=== PATIENT | male | born 1940 | race Caucasian/White ===

== ENCOUNTER → 2016-06-30 | Outpatient (CLI) | payer OTHER ==
[~2016-06-30] MED LIST: ANALGESIC325 MG PO; DUONEB 2.5-0.5 M3 ML INH; FISHOIL; FLOMAX0.4 MG PO; HYDROCODON-ACE1 EAC7 PO; LIDODERM 5%1 PATCH TRANSDERM; LORTAB 7.5-3251 EACH PO; MECLIZINE 25 MG25 M1 PO; NAFCILLIN2 GM/100 M IV; ONE DAILY1 EAC1 PO; SKELAXIN 800 M800 MG PO; VENTOLIN HFA 1818 GM INH
== END ==
LOC: MRI 07:01
DX: M46.20 Osteomyelitis of vertebra, site unspecified (principal); M47.817 Spondylosis without myelopathy or radiculopathy, lumbosacral region

== ENCOUNTER 2017-06-24 07:32 | Emergency (ER) | payer OTHER ==
[~2017-06-24] VITALS: Ht 182.9 cm; Wt 97.5 kg
[2017-06-24 07:33] VITALS: BP 187/101
[2017-06-24] MEDS ORDERED: ASPIRIN325 PO (07:52)
[2017-06-24] MEDS ORDERED: PROSTATE 2.4 C1 EACH PO (07:52)
[2017-06-24] MEDS ORDERED: TYLENOL325 MG PO (07:53)
[2017-06-24] MEDS ORDERED: OXYCODONE HCL 55 MG PO (08:08)
== END 2017-06-24 08:20 | disposition home or self-care (01) ==
LOC: ER 07:32
DX: M25.531 Pain in right wrist (principal); M19.90 Unspecified osteoarthritis, unspecified site; N40.0 Benign prostatic hyperplasia without lower urinary tract symptoms; Z96.652 Presence of left artificial knee joint; Z86.718 Personal history of other venous thrombosis and embolism; Z88.8 Allergy status to other drugs, medicaments and biological substances; Z87.891 Personal history of nicotine dependence

== ENCOUNTER 2018-10-07 16:17 | Emergency (ER) | payer OTHER ==
[~2018-10-07] VITALS: Ht 175.3 cm; Wt 77.1 kg
[~2018-10-07 16:17] MED LIST changes: +ASPIRIN325 PO; +OXYCODONE HCL 55 MG PO; +PROSTATE 2.4 C1 EACH PO; +TYLENOL325 MG PO
[2018-10-07 18:38] VITALS: BP 126/74
== END 2018-10-07 18:25 | disposition home or self-care (01) ==
LOC: ER 16:17
DX: S50.02XA Contusion of left elbow, initial encounter (principal); M19.90 Unspecified osteoarthritis, unspecified site; Z87.891 Personal history of nicotine dependence; Z86.718 Personal history of other venous thrombosis and embolism; W01.0XXA Fall on same level from slipping, tripping and stumbling without subsequent striking against object, initial encounter; Y92.89 Other specified places as the place of occurrence of the external cause; Y99.0 Civilian activity done for income or pay; Y99.8 Other external cause status

== ENCOUNTER → 2018-10-27 | Outpatient (CLI) | payer OTHER ==
--- NOTE | ~2018-10-27 | PFR/MVV ---
[facility] [place] [address] PULMONARY FUNCTION MVV/REPORT Name: MARCELABENJAMIN M Room #: REG [facility]#: [id number] ������������������ Admission: 10/27/18 ������������������ Attend Phys: Jeff Hopkins MD Discharge: ������������������ Date of : 42 Report #: [id number] THIS REPORT FOR: //name// >> SPIROMETRY: (BTPS) Height: in cm Weight: lbs kg Exam Date: PRE-RX POST-RX PRED BEST %PRED BEST %PRED %CHG FVC LITERS . . . . . . FEV1 LITERS . . . . . . FEV1/FVC % . . . . . . XWN63-98% L/Sec . . . . . . PEF L/SEC . . . . . . FEF50/FIF50 UNITLESS . . . . . . MVV L/Min . . . f 1/Min . . . >> LUNG VOLUMES: (BTPS) PRE-RX POST-RX PRED AVG %PRED AVG %PRED %CHG VC Liters . . . . . . TLC Liters . . . . . . RV Liters . . . . . . RV/TLC % . . . . . . FRC PL Liters . . . . . . FRC N2 Liters . . . . . . ERV Liters . . . . . . IC Liters . . . . . . >> DIFFUSION: DLCO ml/Min/mmHg . . . . . . DL Abdulaziz ml/Min/mmHg . . . . . . DLCO/VA ml/Min/mmHg . . . . . . VA Liters . . . . . . COMMENTS: COMMENTS: >> RESISTANCE: [facility] [address] [place] [address] PULMONARY FUNCTION MVV/REPORT Name: BENJAMIN MEDRANO [facility] [id number] ������������������ Admission: 10/27/18 ������������������ Attend Phys: Jeff Hopkins MD Discharge: ������������������ Date of : 42 Report #: [id number] PRE-RX PRED AVG %PRED Raw Total cmH20/L/Sec . . . Raw Insp cmH20/L/Sec . . . Raw Exp cmH20/L/Sec . . . Raw cmH20/L/Sec . . . Gaw L/Sec/cmH20 . . . sRaw cmH20 Sec . . . sGaw l/cmH20 Sec . . . Vtq Liters . . . # = OUTSIDE 95% CONFIDENCE INTERVAL CALIBRATION: PRED: 3.00 ACTUAL: EXP 3.[address] [facility] N-[id number] >> INTERPRETATION/IMPRESSION: CC: Jeff Hopkins DATE OF SERVICE: 10/27/2018 DIAGNOSIS: Dyspnea. SPIROMETRY: FEV1 is 1.19 liters (34%), FVC is 2.87 liters (53%). FEV1/FVC is 41%. Postbronchodilator therapy is significant with FEV1 increasing to 1.53 liters (29% change), FVC increased to 3.49 liters (22% change). Diffusing capacity is 15.8 or 63%. IMPRESSION: Spirometry is suggestive of a very severe obstructive airflow defect with a significant response to bronchodilator therapy. Lung volumes were not completed, so significance air trapping and hyperinflation is not noted. Diffusing capacity is slightly decreased. ��������������������������������������������� ���������������������������������������� By: ��������������������������������������������� Bunny Stevens MD /nt
--- NOTE | ~2018-10-27 | PFR/MVV ---
[facility] [place] [address] [place] [address] PULMONARY FUNCTION MVV/REPORT Name: BENJAMIN MEDRANO Room #: REG [facility] Anam#: [id number] ������������������ Admission: 10/27/18 ������������������ Attend Phys: Jeff Hopkins MD Discharge: ������������������ Date of : 42 Report #: [id number] THIS REPORT FOR: //name// COPIES FOR: AGE:������ 78 SEX/RACE:� M/C >> SPIROMETRY: (BTPS) Height: 78.0 in cm Weight: 220 lbs kg Exam Date: 10/27/18 PRE-RX POST-RX PRED BEST %PRED BEST %PRED %CHG FVC LITERS . 5.38 . 2.87 . 53 . 3.49 . 65 . 22 FEV1 LITERS . 3.45 . 1.19 . 34 . 1.53 . 44 . 29 FEV1/FVC % . 64 . 41 . 64 . 44 . 68 . 6 QCR43-67% L/Sec . 2.71 . 0.35 . 13 . 0.40 . 15 . 14 PEF L/SEC . 9.93 . 3.76 . 38 . 3.83 . 39 . 2 FEF50/FIF50 UNITLESS . . 3.23 . . . . MVV L/Min . 146 . 39 . 27 f 1/Min . . 70 . >> LUNG VOLUMES: (BTPS) PRE-RX POST-RX PRED AVG %PRED AVG %PRED %CHG VC Liters . . . . . . TLC Liters . . . . . . RV Liters . . . . . . RV/TLC % . . . . . . FRC PL Liters . . . . . . FRC N2 Liters . . . . . . ERV Liters . . . . . . IC Liters . . . . . . >> DIFFUSION: DLCO ml/Min/mmHg . 24.9 . 15.8 . 63 . . . DL Abdulaziz ml/Min/mmHg . 24.9 . 15.8 . 63 . . . DLCO/VA ml/Min/mmHg . 3.41 . 3.96 . . . . VA Liters . . 3.99 . . . . [facility] [address] [place] [address] PULMONARY FUNCTION MVV/REPORT Name: BENJAMIN MEDRANO Cristi Room #: [facility]#: [id number] ������������������ Admission: 10/27/18 ������������������ Attend Phys: Jeff Hopkins MD Discharge: ������������������ Date of : 42 Report #: [id number] COMMENTS: COMMENTS: >> RESISTANCE: PRE-RX PRED AVG %PRED Raw Total cmH20/L/Sec . . 3.05 . Raw Insp cmH20/L/Sec . . 3.54 . Raw Exp cmH20/L/Sec . . 6.78 . Raw cmH20/L/Sec . 0.89 . 9.21 . 1037 Gaw L/Sec/cmH20 . 1.139 . 0109 . 10 sRaw cmH20 Sec . 4.22 . . 3816 sGaw l/cmH20 Sec . 0.237 . . 3 Vtq Liters . . 17.48 . # = OUTSIDE 95% CONFIDENCE INTERVAL CALIBRATION: PRED: 3.00 ACTUAL: EXP 3.01 INSP 3.02 [place] [id number] [place] [address] N-1804-4 ��������������������������������������������� ���������������������������������������� By: ��������������������������������������������� D: /CD
--- NOTE | 2018-10-27 15:18 | EKG ---
[address] [address] ELECTROCARDIOGRAM REPORT Name: BENJAMIN MEDRANO Room #: [facility]#: [id number] ������������������ Admission: 10/27/18 ������������������ Attend Phys: Jeff Hopkins MD Discharge: ������������������ Date of : 42 Report #: [id number] ����������������������������������������������������������������� [id number] THIS REPORT FOR: //name// [facility] Test Date: 2018-10-27 Test Time: 12:22:34 Pat Name: BENJAMIN MEDRANO Department: Room: Gender: Home Health Administrator: Ella ORTIZ : 1940 Requested By: Jeff Hopkins Order Number: [id number] MD: Quinn Cabrera Measurements Intervals [place] Rate: 65 P: 66 CT: 210 QRS: 57 QRSD: 98 T: 67 QT: 401 QTc: 417 Interpretive Statements Sinus rhythm Atrial premature complex Compared to ECG 05/11/2016 10:47:39 Atrial premature complex(es) now present T-wave abnormality no longer present ST (T wave) deviation no longer present Electronically Signed On 10-27-2018 15:18:26 CDT by Quinn Cabrera [email or web address] ��������������������������������������������� <ELECTRONICALLY SIGNED> ���������������������������������������� By: Quinn Cabrera MD ��������������������������������������������� 10/27/18 1518 1222 1222 Quinn Cabrera MD /EPI
--- NOTE | 2018-10-27 15:46 | 2DMMODE ---
[facility] [place] [address] 2 D/M-MODE ECHOCARDIOGRAM Name: JULIALIZETTBENJAMIN Room #: REG [facility]#: [id number] ������������� Admission: 10/27/18 ������������� Attend Phys: Cristi Rodriguez Discharge: ��� ������������� ��� Date of : 42 Date of Service: 10/27/18 1546 �� Report #: [id number] �������� ��������������������������������������������[id number] THIS REPORT FOR: //name// APPROVED REPORT Study performed: 10/27/2018 12:57:38 EXAM: Comprehensive 2D, Doppler, and color-flow Echocardiogram Patient Location: Out-Patient Room #: Echo lab 2 Status: routine BSA: 2.20 HR: 61 bpm BP: 158/102 mmHg Rhythm: NSR Other Information Study Quality: Adequate Indications Dyspnea Hypertension/HDD 2D Dimensions RVDd: 42.21 mm IVSd: 10.36 (7-11mm) LVOT Diam: 20.78 (18-24mm) LVDd: 54.03 mm PWd: 10.28 (7-11mm) Ascending Ao: 35.97 (22-36mm) LVDs: 36.32 (25-40mm) Aortic Root: 35.84 mm IVC: 22.00 mm Volumes Left Atrial Volume (Systole) Single Plane 4CH: 76.00 mL Single Plane 2CH: 87.42 mL LA ESV Index: 41.00 mL/m2 Aortic Valve AoV Peak Fam.: 1.57 m/s AO Peak Gr.: 9.82 mmHg LVOT Max P.00 mmHg LVOT Max V: 1.23 m/s YULIANA Vmax: 2.65 cm2 AI Vmax: 2.70 m/s AI Mcnairy: 1.32 m/s2 AI PHT: 590.89 ms [facility] [address] [place] [address] 2 D/M-MODE ECHOCARDIOGRAM Name: BENJAMIN MEDRANO Room #: [facility]#: [id number] ������������� Admission: 10/27/18 ������������� Attend Phys: Cristi Rodriguez Discharge: ��� ������������� ��� Date of : 42 Date of Service: 10/27/18 1546 �� Report #: [id number] �������� ��������������������������������������������[id number] Mitral Valve E/A Ratio: 0.9 MV Decel. Time: 263.97 ms MV E Max Fam.: 0.71 m/s MV A Fam.: 0.80 m/s MV PHT: 76.55 ms IVRT: 133.79 ms Pulmonary Valve PV Peak Fam.: 1.05 m/s PV Peak Gr.: 4.42 mmHg Pulmonary Vein P Vein S: 0.47 m/s P Vein A: 0.25 m/s P Vein D: 0.36 m/s P Vein A Dur.: 115.3 msec P Vein S/D Ratio: 1.31 Tricuspid Valve TR Peak Fam.: 3.01 m/s TR Peak Gr.: 36.31 mmHg PA Pressure: 46.00 mmHg Left Ventricle The left ventricle is normal size. There is normal LV segmental wall motion. There is normal left ventricular wall thickness. The left ventricular systolic function is normal. The left ventricular ejection fraction is within the normal range. LVEF is 60-65%. Mild diastolic dysfunction is present (impaired relaxation pattern). Right Ventricle The right ventricle is normal size. The right ventricular systolic function is normal. Atria Left atrium is dilated. Right atrium is dilated. Aortic Valve Aortic valve is calcified. Mild aortic regurgitation. There is no aortic valvular stenosis. Mitral Valve The mitral valve is normal in structure. Mild mitral regurgitation. No evidence of mitral valve stenosis. Tricuspid Valve The tricuspid valve is normal in structure. There is mild tricuspid [facility] [address] [place] [address] 2 D/M-MODE ECHOCARDIOGRAM Name: BENJAMIN MEDRANO Cristi [facility] [id number] ������������� Admission: 10/27/18 ������������� Attend Phys: Cristi Rodriguez Discharge: ��� ������������� ��� Date of : 42 Date of Service: 10/27/18 1546 �� Report #: [id number] �������� ��������������������������������������������[id number] regurgitation. Estimated PAP 45 mmHg. There is moderate pulmonary hypertension. Pulmonic Valve The pulmonary valve is normal in structure. Trace pulmonic regurgitation. Great Vessels The aortic root is normal in size. The ascending aorta is mildly dilated (3.9cm). IVC is dilated and collapses >50% with inspiration. Pericardium There is no pericardial effusion. <Conclusion> The left ventricular systolic function is normal. There is normal LV segmental wall motion. LVEF is 60-65%. Mild diastolic dysfunction Both atria are mildly dilated. Aortic valve is calcified. Mild aortic regurgitation, no stenosis. The mitral valve is normal in structure. Mild mitral regurgitation. There is mild tricuspid regurgitation. Estimated pulmonary artery pressure of 45 mmHg. The ascending aorta is mildly dilated (3.9cm). There is no pericardial effusion. ��������������������������������������������� <ELECTRONICALLY SIGNED> ���������������������������������������� By: Ismael Odom MD, FACC ��������������������������������������������� 10/27/18 1546 1546 1546 Ismael Odom MD, FACC /INF
== END ==
LOC: CV 08:49
DX: I08.3 Combined rheumatic disorders of mitral, aortic and tricuspid valves (principal); J98.4 Other disorders of lung; I10 Essential (primary) hypertension; I49.9 Cardiac arrhythmia, unspecified

== ENCOUNTER 2019-02-17 10:14 | Inpatient (IN) | payer OTHER ==
[~2019-02-17] VITALS: Ht 182.9 cm; Wt 97.5 kg
[2019-02-17 10:16] VITALS: BP 99/54
[2019-02-17] MEDS ORDERED: UNICOMPLEX M TA1 TA1 PO (10:32)
[2019-02-17 11:42] LABS: CALCIUM 8.8 mg/dL (8.5-10.1); CREATININE 1.3 mg/dL (0.7-1.3)
[2019-02-17 12:43] LABS: HEMATOCRIT 34.1 % (42.0-52.0); HEMOGLOBIN 11.4 gm/dL (14.0-18.0); MCH 35.4 pg (26.0-34.0); MCHC 33.4 g/dL (28.0-37.0); MCV 106.1 fL (80.0-100.0); PLATELET COUNT 172 thou/uL (150-400); RBC 3.22 mil/uL (4.50-6.00); RDW 17.1 % (10.5-14.5); WBC 22.9 thou/uL (4.0-11.0)
[2019-02-17 13:57] VITALS: BP 108/53
[2019-02-17 13:58] LABS: ABSOLUTE NEUTROPHILS 21.1 thou/uL (1.4-8.2)
[2019-02-17 13:59] LABS: NUCLEATED RBCS 1 /100WBC
[2019-02-17 14:00] LABS: ANISOCYTOSIS 1+; MACROCYTES 1+
--- NOTE | 2019-02-17 15:14 | EKG ---
[place] [address] [facility] [place] [address] [address] ELECTROCARDIOGRAM REPORT Name: BENJAMIN MEDRANO Room #: 419-P ADM IN M.R.#: [id number] Admission: 02/17/19 Attend Phys: Fernie Lares Discharge: Date of : 42 Report #: [id number] THIS REPORT FOR: //name// [facility] ED Test Date: 2019-02-17 Test Time: 11:22:14 Pat Name: BENJAMIN MEDRANO Department: Room: [facility] Gender: M Patrol Sergeant: TEREZA : 1940 Requested By: Flor Pratt Order Number: [id number] MD: Ismael Odom Measurements Intervals [place] Rate: 82 P: 52 LA: 185 QRS: 12 QRSD: 95 T: 55 QT: 374 QTc: 437 Interpretive Statements Sinus rhythm Atrial premature complexes Borderline T wave abnormalities Compared to ECG 10/27/2018 12:22:34 T-wave abnormality now present Electronically Signed On 02-17-2019 15:13:49 CDT by Ismael Odom [email or web address] <ELECTRONICALLY SIGNED> By: Ismael Odom MD, [facility] 02/17/19 1513 21 21 Ismael Odom MD, [facility] /EPI
--- NOTE | 2019-02-17 17:36 | NUR ---
PATIENT ADMITTED TO ROOM AT THIS TIME ACCOMPANIED BY . HE IS ALERT ORIETNTED X4. DENIES PAIN. BUT DID HAVE A LOW GRADE FEVER THAT WAS TREATED WITH TYLENOL. IT WAS MILDLY EFFECTIVE. PLEASANT WITH CARE. WILL CONT WITH PLAN OF CARE.
[2019-02-17 20:20] VITALS: BP 139/53
[2019-02-17 23:20] VITALS: BP 119/56
--- NOTE | 2019-02-18 00:35 | NUR ---
ASSUMED CARE OF PT AT 1900. PT A&OX4. USES THE URINAL AND CAN GET UP WITH STANDBY ASSIST. L LEG WARM, RED AND ELEVATED WITH 3PILLOWS. NO C/O OF PAIN. PT HAD A LOW GRADE FEVER OF 99.9, TYLENOL WAS GIVEN. PT IS ON ABX. NO FLUIDS ORDERED. CALL HER WITHN REACH
[2019-02-18 04:59] LABS: HEMATOCRIT 33.6 % (42.0-52.0); HEMOGLOBIN 11.3 gm/dL (14.0-18.0); MCH 35.5 pg (26.0-34.0); MCHC 33.5 g/dL (28.0-37.0); RBC 3.17 mil/uL (4.50-6.00); RDW 17.9 % (10.5-14.5); WBC 13.3 thou/uL (4.0-11.0)
[2019-02-18 05:10] VITALS: BP 144/79
[2019-02-18 05:13] LABS: ALBUMIN 2.6 g/dL (3.4-5.0); CALCIUM 8.2 mg/dL (8.5-10.1); CREATININE 1.3 mg/dL (0.7-1.3); POTASSIUM 4.1 mmol/L (3.5-5.1)
[2019-02-18 07:49] VITALS: BP 115/72
[2019-02-18 17:26] VITALS: BP 119/71
[2019-02-18 19:40] VITALS: BP 126/60
--- NOTE | 2019-02-19 03:19 | NUR ---
ASSESSMENT COMPLETED. PT A&OX4. TEMP WAS 99.5, TYLENOL GIVEN AND TEMP WENT DOWN TO 98. OTHER VITAL SIGNS STABLE. L LEG RED, WARM AND ELEVATED ON 3PILLOWS. PT USES THE URINAL. NO C/O OF PAIN. AMBULATES WITH STANDBY ASSIST WITH STEAD GAIT. CALLS FOR ASSISSTANCE APPROPRAITELY. CALL HER WITHIN REACH
[2019-02-19 07:18] VITALS: BP 138/70
[2019-02-19 15:19] VITALS: BP 106/65
--- NOTE | 2019-02-19 18:47 | NUR ---
PT A&OX4. IV INTACT IN L AC. DID SIT UP IN CHAIR FOR SEVERAL HOURS TODAY WITH LOWER EXTREMITY ELEVATED. DENIES NEED FOR PAIN MED TODAY, SPOUSE AT BEDSIDE.
[2019-02-19 19:27] VITALS: BP 133/81
--- NOTE | 2019-02-19 22:57 | NUR ---
ASSESSMENT COMPLETED. PT IS ALERT AD PLEASANT. LLE STILL WITH SOME REDNESS. MILD EDEMA AND TENDERNESS. PT CONTINUES TO ELEVATE THE FOOT. AFEBRILE. GIVEN TYLENOL AT HS TO HELP WITH MILD L FOOT SORENESS.CALL LIGHT WITHIN REACH. WILL CONTINUE WITH POC TILL EOS.
[2019-02-20 06:02] VITALS: BP 141/74
[2019-02-20 07:20] VITALS: BP 119/66
[2019-02-20] MEDS ORDERED: HYDROCODON-ACE1 EAC7 PO (10:27)
[2019-02-20] MEDS ORDERED: CLEOCIN HCL150 MG PO (10:28)
--- NOTE | 2019-02-20 11:29 | NUR ---
WOUND CONSULT; THE PATIENT HAS A LONG HISTORY OF VENOUS INSUFFICENCY. CURRENTLY HAS A DRY WOUND TO THE LLE HIGH ANKLE MEDIAL. THE EXTREMITY IS HOT AND EDEAMOTOUS. RECOMMENDATIONS; CONSULT DR BRANDT. DISCUSSED WITH MOUSTAPHA
[2019-02-20 15:00] VITALS: BP 113/61
--- NOTE | 2019-02-20 15:29 | NUR ---
INITIAL ASSESSMENT: Pt evaluated for d/c planning needs. Reviewed chart and spoke with nurse, pt and spouse. Pt is alert and oriented. Pt lives in house with spouse and was independent with ADL's prior to admission to the hospital. 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 Pt has walker and cane at home, but does not use. Pt was hospitalized in the past, and returned home with [facility] and [facility] for IV infusion. Pt plans on returning home on d/c from hospital. Pt is not interested in home health services at this time. Will remain available to assist as needed.
[2019-02-20 16:21] VITALS: BP 119/66
--- NOTE | 2019-02-20 16:31 | NUR ---
NOTIFIED [facility] OF REFERRAL SPOKE WITH SANDOR IN INTAKE SHE WILL REVIEW. DR LEYVA TO CHANGE DC ORDER/SUMMARY TO HOME WITH HH. SANDOR TO NOTIFY PT IN AM OF TIME OF VISITS IF ACCEPTED. DCP WILL F/U WITH [facility] IN AM.
[2019-02-20 16:47] VITALS: BP 119/66
--- NOTE | 2019-02-20 18:50 | NUR ---
Patient discharged to home with Home Health Services. et 2 daughters here at discharge. All family members verbalized an understanding to Discharge Instructions before patient signed paperwork. Vital signs are WNL's, LSCTA, BS x's 4, Abdomen soft et non-tender, skin is clean, warm, dry et intact; he denies pain. Left lower extremity dressed as ordered due to cellulitis. Patient discharged at 1845.
--- NOTE | 2019-02-21 11:50 | HC ---
[facility] [place] [address] [place] [address] CONSULTATION Name: BENJAMIN MEDRANO Room #: 419-P [facility] IN M.R.#: [id number] Admission: 02/17/19 Attend Phys: Fernie Lares Discharge: 02/20/19 Date of : 42 Report #: [id number] THIS REPORT FOR: //name// CC: Fernie Hopkins DATE OF SERVICE: 02/20/2019 WOUND CARE CONSULTATION PERSONAL PHYSICIAN: Dr. Jeff Hopkins. CHIEF COMPLAINT: Left lower extremity ulcer with cellulitis. HISTORY OF PRESENT ILLNESS: This is a 79-year-old white male who states for the past month, he has noticed he has had a wound over the medial aspect of his ankle, which he has been treating with [id number] dressings. The patient states that he has also noted he had some slight swelling in his left leg over the past month as well. The patient states he is unclear whether the etiology of the ulcer. The patient states he does have pain, which is a burning type pain around the ulcer itself without radiation, made worse with ambulation and swelling, better with elevation and rest. The patient denies any other associated wounds he could not heal on his own in the past. The patient states prior to coming to the Emergency Department, he started having severe shaking chills, which prompted him to come to the hospital to be evaluated. At that point in time, it was noted that the patient's left leg was red, swollen, and tender to palpation consistent with cellulitis. The patient was admitted for IV antibiotics. We have been asked to see the patient for evaluation of the left medial ankle ulceration. The patient states he has never had any workup for venous insufficiency. PAST MEDICAL HISTORY: Significant for previous DVT in his right leg in 1974, history of osteoarthritis, benign prostatic hypertrophy, urinary retention, previous left total knee arthroplasty in 2011, L5-S1 diskitis with epidural abscess in 04/2016. CURRENT MEDICATIONS: Multiple, I reviewed the patient's medication list. DRUG ALLERGIES: COUMADIN. SOCIAL HISTORY: The patient has a remote history of smoking, quitting several years ago. He states he drinks alcohol socially. Lives with his . FAMILY HISTORY: Not pertinent to current medical condition. REVIEW OF SYSTEMS: [address] [address] CONSULTATION Name: BENJAMIN MEDRANO Room #: 419-P [facility] IN .R.#: [id number] Admission: 02/17/19 Attend Phys: Fernie Lares Discharge: 02/20/19 Date of : 42 Report #: [id number] CONSTITUTIONAL: The patient had shaking chills with associated low-grade fever upon admission; however, denies any in the past 24 hours. EYES: No complaints. ENT: No complaints. CARDIAC: The patient has chronic lower extremity edema, left greater than right in the past several days. No chest pain or palpitation. RESPIRATORY: The patient denies shortness of breath, cough or wheezes. GASTROINTESTINAL: The patient denies nausea, vomiting or abdominal pain. GENITOURINARY: The patient denies urgency or frequency. MUSCULOSKELETAL: No complaints. SKIN: There is what appears to be a chronic ulcer on the medial left ankle. PHYSICAL EXAMINATION: VITAL SIGNS: Temperature 36.8, pulse 85, respirations 18, BP 113/61. GENERAL: This is an alert and oriented x 3, pleasant white male who is in absolutely no distress. HEENT: Normocephalic, atraumatic. Mucous membranes are moist. Pupils are round. Sclerae white. NECK: Supple, nontender. LUNGS: Clear. HEART: Regular. ABDOMEN: Soft, nontender. EXTREMITIES: The patient moves all extremities without difficulty. Evaluation of left lower extremity reveals 1+ edema with 1+ dorsalis pedis and posterior tibial pulse on the medial aspect of the left ankle is what appears to be a chronic ulcer, limited to breakdown of subcutaneous tissue. A mixture of approximately 50% granulation tissue, 50% slough, minimal amount of serosanguineous drainage noted without odor. Periwound is intact. Tender to palpation. There is no evidence of any undermining or tunneling. There is no involvement of deeper structures. Left heel, foot and toes all without ulcerations. Left leg itself has mild erythema and minimal warmth. There is no associated tenderness at this time. Right lower extremity without any open ulcerations, but does have 1+ edema. NEUROLOGIC: Cranial nerves 2-12 grossly intact. Motor and sensory grossly intact. LABORATORY DATA: White count 13.3, this is down from 22.9, hemoglobin 11.3, albumin is 2.6. Left lower extremity arterial ultrasound shows no signs of stenosis. IMPRESSION: 1. Chronic ulceration, left medial ankle, limited to breakdown of subcutaneous tissue with a resolving cellulitis. 2. Bilateral lower extremity edema consistent with venous insufficiency, overall improving. 3. Protein-calorie malnutrition, moderate albumin 2.6. [facility] [address] [place] [address] CONSULTATION Name: BENJAMIN MEDRANO Room #: 419-P DIS IN M.R.#: [id number] Admission: 02/17/19 Attend Phys: Fernie Laers Discharge: 02/20/19 Date of : 42 Report #: [id number] 4. Generalized debility. PLAN: At this time, we will start the patient on silver foam over the medial ankle ulcer and have this changed every other day. Given the arterial Dopplers showed no signs of stenosis, we will use Kerlix and Kenny from toes to knee for control of edema. Have the patient elevate his legs as much as possible and have him follow up in my clinic in the next 7-10 days. We will continue on oral antibiotics for his cellulitis. We will encourage the patient to maximize his protein supplementation for healing. Continue all other current medications. We will continue to follow him as an outpatient. <ELECTRONICALLY SIGNED> By: Latrell Herbert MD 02/21/19 1150 0940 [id number] Latrell Herbert MD /nt
== END 2019-02-20 19:00 | disposition home health service (06) | DRG 871 ==
LOC: ER 10:14 → 4E 13:31 → EROBS 13:31 → 4E 14:42
PROVIDERS: Nurse Practitioner Family; ADMIT Hospitalist
DX: A41.9 Sepsis, unspecified organism (principal); E43 Unspecified severe protein-calorie malnutrition; L03.116 Cellulitis of left lower limb; L97.329 Non-pressure chronic ulcer of left ankle with unspecified severity; M19.90 Unspecified osteoarthritis, unspecified site; N40.0 Benign prostatic hyperplasia without lower urinary tract symptoms; Z96.652 Presence of left artificial knee joint; Z86.718 Personal history of other venous thrombosis and embolism; Z79.82 Long term (current) use of aspirin; Z79.899 Other long term (current) drug therapy; Z88.8 Allergy status to other drugs, medicaments and biological substances; Z87.891 Personal history of nicotine dependence; Z68.29 Body mass index [BMI] 29.0-29.9, adult
CPT/HCPCS: 10084

== ENCOUNTER → 2019-03-07 | Outpatient (CLI) | payer OTHER ==
[~2019-03-07] MED LIST changes: +CLEOCIN HCL150 MG PO; +UNICOMPLEX M TA1 TA1 PO
== END ==
LOC: HYPER 06:48
DX: L97.322 Non-pressure chronic ulcer of left ankle with fat layer exposed (principal); L03.116 Cellulitis of left lower limb; I87.2 Venous insufficiency (chronic) (peripheral); E44.0 Moderate protein-calorie malnutrition; L84 Corns and callosities; R54 Age-related physical debility; R60.0 Localized edema; M19.90 Unspecified osteoarthritis, unspecified site; Z86.718 Personal history of other venous thrombosis and embolism; Z79.82 Long term (current) use of aspirin; Z87.891 Personal history of nicotine dependence

== ENCOUNTER → 2019-03-22 | Outpatient (CLI) | payer OTHER | LOC: HYPER 06:48 | DX: L97.811 Non-pressure chronic ulcer of other part of right lower leg limited to breakdown of skin (principal); L97.822 Non-pressure chronic ulcer of other part of left lower leg with fat layer exposed; L03.116 Cellulitis of left lower limb; I87.2 Venous insufficiency (chronic) (peripheral); E44.0 Moderate protein-calorie malnutrition; R54 Age-related physical debility; M19.90 Unspecified osteoarthritis, unspecified site; Z86.718 Personal history of other venous thrombosis and embolism; Z68.29 Body mass index [BMI] 29.0-29.9, adult; Z87.891 Personal history of nicotine dependence; Z79.82 Long term (current) use of aspirin; Z96.652 Presence of left artificial knee joint ==

== ENCOUNTER → 2019-04-06 | Outpatient (CLI) | payer OTHER | LOC: HYPER 09:15 | DX: L97.811 Non-pressure chronic ulcer of other part of right lower leg limited to breakdown of skin (principal); L03.116 Cellulitis of left lower limb; I87.2 Venous insufficiency (chronic) (peripheral); E44.0 Moderate protein-calorie malnutrition; M19.90 Unspecified osteoarthritis, unspecified site; R54 Age-related physical debility; Z68.29 Body mass index [BMI] 29.0-29.9, adult; Z86.718 Personal history of other venous thrombosis and embolism; Z96.652 Presence of left artificial knee joint; Z87.891 Personal history of nicotine dependence; Z79.82 Long term (current) use of aspirin ==

== ENCOUNTER → 2019-09-20 | Outpatient (CLI) | payer OTHER | LOC: HYPER 08:06 | DX: L97.822 Non-pressure chronic ulcer of other part of left lower leg with fat layer exposed (principal); I87.2 Venous insufficiency (chronic) (peripheral); I89.0 Lymphedema, not elsewhere classified; R21 Rash and other nonspecific skin eruption; L30.9 Dermatitis, unspecified; M19.90 Unspecified osteoarthritis, unspecified site; R54 Age-related physical debility; Z86.718 Personal history of other venous thrombosis and embolism; Z87.891 Personal history of nicotine dependence; Z79.82 Long term (current) use of aspirin; Z96.652 Presence of left artificial knee joint ==

== ENCOUNTER → 2019-09-26 | Outpatient (CLI) | payer OTHER | LOC: HYPER 11:20 | DX: L97.822 Non-pressure chronic ulcer of other part of left lower leg with fat layer exposed (principal); R21 Rash and other nonspecific skin eruption; I87.2 Venous insufficiency (chronic) (peripheral); I89.0 Lymphedema, not elsewhere classified; L30.9 Dermatitis, unspecified; E46 Unspecified protein-calorie malnutrition; R60.0 Localized edema; R54 Age-related physical debility; M19.90 Unspecified osteoarthritis, unspecified site; Z87.891 Personal history of nicotine dependence; Z96.652 Presence of left artificial knee joint; Z86.718 Personal history of other venous thrombosis and embolism ==

== ENCOUNTER → 2019-10-04 | Outpatient (CLI) | payer OTHER | LOC: HYPER 08:46 | DX: L97.822 Non-pressure chronic ulcer of other part of left lower leg with fat layer exposed (principal); R21 Rash and other nonspecific skin eruption; I87.2 Venous insufficiency (chronic) (peripheral); I89.0 Lymphedema, not elsewhere classified; R60.0 Localized edema; E46 Unspecified protein-calorie malnutrition; L30.9 Dermatitis, unspecified; M19.90 Unspecified osteoarthritis, unspecified site; Z87.891 Personal history of nicotine dependence; Z96.653 Presence of artificial knee joint, bilateral; Z86.718 Personal history of other venous thrombosis and embolism ==

== ENCOUNTER 2019-10-21 10:13 | Emergency (ER) | payer OTHER ==
[~2019-10-21] VITALS: Ht 180.3 cm; Wt 98.0 kg
[2019-10-21] MEDS ORDERED: TRAMADOL 50 MG50 MG PO (11:02)
[2019-10-21 11:41] VITALS: BP 130/75
== END 2019-10-21 11:43 | disposition home or self-care (01) ==
LOC: ER 10:13
DX: S82.842A Displaced bimalleolar fracture of left lower leg, initial encounter for closed fracture (principal); F17.210 Nicotine dependence, cigarettes, uncomplicated; Z79.899 Other long term (current) drug therapy; Z79.82 Long term (current) use of aspirin; Z88.8 Allergy status to other drugs, medicaments and biological substances; W01.0XXA Fall on same level from slipping, tripping and stumbling without subsequent striking against object, initial encounter; Y93.89 Activity, other specified; Y92.89 Other specified places as the place of occurrence of the external cause; Y99.8 Other external cause status

== ENCOUNTER 2020-06-21 14:44 | Emergency (ER) | payer OTHER ==
[~2020-06-21] VITALS: Ht 182.9 cm; Wt 93.4 kg
[~2020-06-21 14:44] MED LIST changes: +TRAMADOL 50 MG50 MG PO
[2020-06-21 14:54] VITALS: BP 154/87
== END 2020-06-21 16:00 | disposition home or self-care (01) ==
LOC: ER 14:44
DX: S46.212A Strain of muscle, fascia and tendon of other parts of biceps, left arm, initial encounter (principal); Z87.891 Personal history of nicotine dependence; Z79.82 Long term (current) use of aspirin; Z79.899 Other long term (current) drug therapy; Z88.8 Allergy status to other drugs, medicaments and biological substances; Z86.718 Personal history of other venous thrombosis and embolism; X50.0XXA Overexertion from strenuous movement or load, initial encounter; Y93.89 Activity, other specified; Y92.89 Other specified places as the place of occurrence of the external cause; Y99.9 Unspecified external cause status

== ENCOUNTER → 2021-07-04 | Outpatient (CLI) | payer OTHER | LOC: RAD 08:43 | PROVIDERS: ATTEND Internal Medicine Pulmonary Disease | DX: J98.11 Atelectasis (principal); J84.10 Pulmonary fibrosis, unspecified; R06.00 Dyspnea, unspecified ==